=== PATIENT | female | born 1995 | race Caucasian/White ===

== ENCOUNTER 2020-04-15 11:47 | Inpatient (IN) | payer OTHER ==
[~2020-04-15] VITALS: Ht 182.9 cm; Wt 84.7 kg
[2020-04-15 13:32] LABS: BASOPHILS % (AUTO) 0.5 % (0-1); EOSINOPHILS # (AUTO) 0.1 X10'3 (0-0.9); EOSINOPHILS % (AUTO) 0.9 % (0-6); HEMATOCRIT 41.8 % (35.0-45.0); HEMOGLOBIN 13.7 g/dl (12.0-16.0); LYMPHOCYTES % (AUTO) 28.2 % (21-51); MEAN CORPUSCULAR HEMOGLOBIN 29.1 PG (27.0-31.0); MEAN CORPUSCULAR HGB CONC 32.8 g/dL (33.0-36.5); MEAN CORPUSCULAR VOLUME 88.8 FL (78-98); MEAN PLATELET VOLUME 7.8 FL (7.4-10.4); MONOCYTES # (AUTO) 0.7 X10'3 (0-0.9); MONOCYTES % (AUTO) 9.4 % (2-12); NEUTROPHILS # (AUTO) 4.3 X10'3 (1.8-7.7); PLATELET COUNT 342 X10'3 (140-440); RED BLOOD COUNT 4.71 X10'6 (4.20-5.60); WHITE BLOOD COUNT 7.1 X10'3 (4.5-11.0)
[2020-04-15 13:43] LABS: ALANINE AMINOTRANSFERASE 29 U/L (12-78); ALBUMIN 4.3 G/DL (3.4-5.0); ALKALINE PHOSPHATASE 49 IU/L (46-116); ANION GAP 8 (8-16); ASPARTATE AMINO TRANSFERASE 14 U/L (10-37); BILIRUBIN,TOTAL 0.3 MG/DL (0.1-1.0); BLOOD UREA NITROGEN 16 MG/DL (7-18); BUN/CREATININE RATIO 25.8 (6.6-38.0); CALCIUM 9.6 MG/DL (8.5-10.1); CHLORIDE 103 MMOL/L (99-107); CREATININE 0.62 MG/DL (0.40-0.90); GLUCOSE 98 MG/DL (70-104); POTASSIUM 4.5 MMOL/L (3.5-5.1); SODIUM 138 MMOL/L (135-145); TOTAL CARBON DIOXIDE 26.8 MMOL/L (24-32); TOTAL PROTEIN 8.6 G/DL (6.4-8.2); eGFR > 90 ML/MIN
[2020-04-15 14:00] LABS: PARTIAL THROMBOPLASTIN TIME 26 SECONDS (22-32)
[2020-04-15] MEDS ORDERED: iohexol 350MG/ML 100ml bottle IV ONE (15:14)
[2020-04-15 15:22] LABS: CLARITY,URINE SLIGHTLY CLOUDY (Clear); COLOR,URINE STRAW (Yellow); GLUCOSE, URINE NEGATIVE (Neg); KETONES,URINE NEGATIVE (Neg); LEUKOCYTE ESTERASE ,URINE NEGATIVE (Neg); NITRITES, URINE NEGATIVE (Neg); OCCULT BLOOD,URINE MODERATE (Neg); PROTEIN,URINE NEGATIVE (Neg); UROBILINOGEN,URINE 0.2 E.U/dL (0.2-1.0)
[2020-04-15 15:30] LABS: UA COLLECTION TYPE NON-SPECIFIED
[2020-04-15 15:35] LABS: SQUAMOUS EPITHELIAL CELL,UR FEW /LPF (FEW)
[2020-04-15 15:36] LABS: BACTERIA,URINE FEW /HPF (Neg); RBC,URINE 0-2 /HPF (0-2); WBC,URINE 0-4 /HPF (0-4)
[2020-04-15 16:11] LABS: HCG SERUM QL NEGATIVE
[2020-04-15] MEDS ORDERED: NO HOME MEDS (17:57)
[2020-04-15] MEDS ORDERED: magnesium 2GM in 50ml NS 50 ML IV PRN (19:00)
[2020-04-15] MEDS ORDERED: HYDROcodone/acetaminophen 5mg/325mg tablet PO PRN (19:00)
[2020-04-15] MEDS ORDERED: bisacodyl 10mg suppository rectal RC PRN (19:00)
[2020-04-15] MEDS ORDERED: diphenhydrAMINE 25mg capsule PO PRN (19:00)
[2020-04-15] MEDS ORDERED: magnesium hydroxide 30ml (MOM) UD suspension PO PRN (19:00)
[2020-04-15] MEDS ORDERED: potassium Cl 20 mEq SR tablet PO PRN ×2 (19:00)
[2020-04-15] MEDS ORDERED: mag hydrox/Alum hydrox/simeth 30ml oral suspension PO PRN (19:00)
[2020-04-15] MEDS ORDERED: magnesium Cl slow-release 64mg tablet PO PRN (19:00)
[2020-04-15] MEDS ORDERED: potassium Cl 40MEQ/1/2NS 520ml 520 ML IV PRN ×2 (19:00)
[2020-04-15] MEDS ORDERED: ondansetron/PF 4mg/2ml inj IV PRN (19:00)
[2020-04-15] MEDS ORDERED: magnesium 4gm in 100ml NS 100 ML IV PRN (19:00)
[2020-04-15] MEDS ORDERED: acetaminophen 325mg tablet PO PRN ×2 (19:00)
[2020-04-15] MEDS ORDERED: acetaminophen 650mg rectal suppository RC PRN (19:00)
[2020-04-15] MEDS ORDERED: HYDROcodone/acetaminophen 10/325mg tab PO PRN (19:00)
[2020-04-15 19:26] LABS: HEMOGLOBIN A1C 5.8 % (4.5-6.2)
[2020-04-15 19:33] LABS: C-REACTIVE PROTEIN 0.22 MG/DL (0.0-0.5); CHOL/HDL RATIO 2.8 (0.00-4.99); CHOLESTEROL 191 MG/DL (0-200); HDL CHOLESTEROL 68 MG/DL (35-60); LDL CHOLESTEROL 114 MG/DL (50-100); TRIGLYCERIDES 54 MG/DL (20-135)
--- NOTE | 2020-04-15 19:40 | NUR ---
Patient in room . I have received report from [facility] and had the opportunity to ask questions and assume patient care.
[2020-04-15 19:44] VITALS: BP 137/65
[2020-04-15] MEDS: K and/or MAG REPLACEMENT MC SCH (19:46)
[2020-04-15 19:48] LABS: URINE AMPHETAMINE SCREEN NEGATIVE (Neg); URINE BARBITUATE SCREEN NEGATIVE (Neg); URINE BENZODIAZEPINES SCREEN NEGATIVE (Neg); URINE CANNABINOID SCREEN NEGATIVE (Neg); URINE COCAINE SCREEN NEGATIVE (Neg); URINE METHADONE SCREEN NEGATIVE (Neg); URINE OPIATE SCREEN NEGATIVE (Neg); URINE PHENCYCLIDINE SCREEN NEGATIVE (Neg)
[2020-04-15] MEDS: heparin, porcine 5000 units/ml vial SQ SCH (20:34)
[2020-04-15] MEDS: normal saline 1000ml 1,000 ML IV SCH (20:34)
[2020-04-15] MEDS ORDERED: predniSONE 20 mg tablet PO ONE (20:45)
[2020-04-15] MEDS ORDERED: PEG 400/HYPROMELLOSE/GLYCERIN 15ml bottle RIGHTEYE SCH (21:00)
[2020-04-15] MEDS: polyvinyl alcohol ophthalmic drops 15ml bottle RIGHTEYE SCH (21:42)
[2020-04-16] MEDS: normal saline 1000ml 1,000 ML IV SCH ×2 (05:21→15:00)
[2020-04-16 05:30] VITALS: BP 110/58
--- NOTE | 2020-04-16 06:10 | NUR ---
Patient in room [facility]. I have received report from [facility] and had the opportunity to ask questions and assume patient care.
--- NOTE | 2020-04-16 06:34 | NUR ---
Problems reprioritized. Patient report given, questions answered & plan of care reviewed with [facility]ce[facility].
[2020-04-16] MEDS ORDERED: aspirin 81mg tablet.DR PO SCH (08:00)
[2020-04-16] MEDS ORDERED: predniSONE 20 mg tablet PO SCH (08:00)
[2020-04-16] MEDS ORDERED: atorvastatin 10mg tablet PO SCH (08:00)
[2020-04-16 08:21] LABS: BASOPHILS % (AUTO) 0.2 % (0-1); EOSINOPHILS % (AUTO) 0 % (0-6); HEMATOCRIT 38.8 % (35.0-45.0); LYMPHOCYTES % (AUTO) 13.9 % (21-51); MEAN CORPUSCULAR HEMOGLOBIN 29.8 PG (27.0-31.0); MEAN CORPUSCULAR HGB CONC 33.5 g/dL (33.0-36.5); MEAN CORPUSCULAR VOLUME 88.8 FL (78-98); MEAN PLATELET VOLUME 7.7 FL (7.4-10.4); MONOCYTES # (AUTO) 0.2 X10'3 (0-0.9); MONOCYTES % (AUTO) 3.3 % (2-12); NEUTROPHILS # (AUTO) 5.7 X10'3 (1.8-7.7); NEUTROPHILS % (AUTO) 82.6 % (42-75); PLATELET COUNT 304 X10'3 (140-440); RED BLOOD COUNT 4.36 X10'6 (4.20-5.60); RED CELL DISTRIBUTION WIDTH 12.9 % (11.5-14.5); WHITE BLOOD COUNT 6.9 X10'3 (4.5-11.0)
[2020-04-16 09:00] LABS: ALANINE AMINOTRANSFERASE 23 U/L (12-78); ALBUMIN 3.8 G/DL (3.4-5.0); ALBUMIN/GLOBULIN RATIO 0.9 (1.1-1.5); ALKALINE PHOSPHATASE 49 IU/L (46-116); ANION GAP 12 (8-16); ASPARTATE AMINO TRANSFERASE 14 U/L (10-37); BILIRUBIN,TOTAL 0.3 MG/DL (0.1-1.0); BLOOD UREA NITROGEN 17 MG/DL (7-18); BUN/CREATININE RATIO 29.3 (6.6-38.0); CALCIUM 9.1 MG/DL (8.5-10.1); CHLORIDE 104 MMOL/L (99-107); CHOL/HDL RATIO 2.7 (0.00-4.99); CHOLESTEROL 188 MG/DL (0-200); CREATININE 0.58 MG/DL (0.40-0.90); GLUCOSE 128 MG/DL (70-104); HDL CHOLESTEROL 70 MG/DL (35-60); LDL CHOLESTEROL 105 MG/DL (50-100); PHOSPHORUS 3.1 MG/DL (2.3-4.5); POTASSIUM 4.2 MMOL/L (3.5-5.1); SODIUM 136 MMOL/L (135-145); TOTAL CARBON DIOXIDE 20.5 MMOL/L (24-32); TOTAL PROTEIN 8.2 G/DL (6.4-8.2); TRIGLYCERIDES 35 MG/DL (20-135); eGFR > 90 ML/MIN
[2020-04-16 10:00] VITALS: BP 111/55
[2020-04-16] MEDS: polyvinyl alcohol ophthalmic drops 15ml bottle RIGHTEYE SCH ×3 (10:53→16:33)
[2020-04-16] MEDS: heparin, porcine 5000 units/ml vial SQ SCH (10:54)
[2020-04-16] MEDS: K and/or MAG REPLACEMENT MC SCH (10:59)
[2020-04-16 14:00] VITALS: BP 124/76
[2020-04-16] MEDS ORDERED: GADOTERATE MEGLUMINE 7.5 MMOL/15 ML VIAL IV ONE (14:27)
[2020-04-16] MEDS ORDERED: METH4TAB3 PO (17:21)
[2020-04-16] MEDS ORDERED: POLY15DR31 RIGHTEYE (17:22)
--- NOTE | 2020-04-16 18:00 | NUR ---
DC inst provided to pt & . IV x2 DC'd, tips intact. All belongings sent w/pt. Pt ambulated to front lobby.
--- NOTE | 2020-04-16 18:23 | NUR ---
Patient in room [facility] 4023. I have received report from [facility] and had the opportunity to ask questions and assume patient care.
[2020-04-17 12:40] LABS: COMPLEMENT C3, SERUM 133 mg/dL (82-167); COMPLEMENT C4, SERUM 24 mg/dL (12-38)
[2020-04-17 17:56] LABS: ANTINUCLEAR ANTIBODIES Positive (Negative)
== END 2020-04-16 18:00 | disposition home or self-care (01) | DRG 74 ==
LOC: ER 11:48 → ED HOLD 18:59 → ORTHO 4S 19:00
PROVIDERS: ADMIT Family Medicine; ATTEND Family Medicine
PROC: B3251ZZ Computerized Tomography (CT Scan) of Bilateral Common Carotid Arteries using Low Osmolar Contrast (ICD-10-PCS; principal; 2020-04-15)
PROC: B32G1ZZ Computerized Tomography (CT Scan) of Bilateral Vertebral Arteries using Low Osmolar Contrast (ICD-10-PCS; 2020-04-15)
PROC: B3281ZZ Computerized Tomography (CT Scan) of Bilateral Internal Carotid Arteries using Low Osmolar Contrast (ICD-10-PCS; 2020-04-15)
DX: G51.0 Bell's palsy (principal); G43.909 Migraine, unspecified, not intractable, without status migrainosus; E28.2 Polycystic ovarian syndrome; Z80.3 Family history of malignant neoplasm of breast; Z82.49 Family history of ischemic heart disease and other diseases of the circulatory system
CPT/HCPCS: 36415; 70450; 70496; 70498; 70544; 70553; 71045; 80053; 80061; 80305; 81001; 83036; 83735; 84100; 84443; 84703; 85025; 85610; 85651; 85730; 86038; 86140; 86160; 86885; 86900; 86901; 87081; 93005; 93306; 93880; 97110; 97163; 99285; A9575; G0378; J1644; J7030; J7512; Q9967

== ENCOUNTER 2020-12-09 05:47 | Emergency (ER) | payer OTHER ==
[~2020-12-09] VITALS: Ht 182.9 cm; Wt 84.1 kg
[~2020-12-09 05:47] MED LIST: METH4TAB3 PO; POLY15DR31 RIGHTEYE
[2020-12-09 06:05] VITALS: BP 121/64
[2020-12-09] MEDS ORDERED: IBUP-1984 PO (08:31)
[2020-12-09] MEDS ORDERED: CYCL-1 PO (08:31)
== END 2020-12-09 08:56 | disposition home or self-care (01) ==
LOC: ER 05:48
DX: S29.012A Strain of muscle and tendon of back wall of thorax, initial encounter (principal); M54.89 Other dorsalgia; G89.29 Other chronic pain; Z79.899 Other long term (current) drug therapy; V87.7XXA Person injured in collision between other specified motor vehicles (traffic), initial encounter; Y93.89 Activity, other specified; Y92.89 Other specified places as the place of occurrence of the external cause; Y99.8 Other external cause status
CPT/HCPCS: 99283